=== PATIENT | male | born 1970 | race American Indian/Alaskan Native ===

== ENCOUNTER 2019-01-20 20:08 | Emergency (ER) | payer SELFPAY ==
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
[2019-01-20] MEDS ORDERED: TETRACAINE 0.5% OPHTH SOLN 4ML OU PRN (23:49)
[2019-01-20] MEDS ORDERED: FLUORESCEIN 1 MG STRIP OP ONE (23:49)
--- NOTE | 2019-01-21 00:30 | Emergency Department Report ---
ED General Adult HPI - General Chief complaint: Eye Problems Stated complaint: HIT IN LT EYE Time Seen by Provider: 01/20/19 21:28 Source: patient Mode of arrival: Ambulatory Limitations: No Limitations - History of Present Illness Initial comments: Patient is a 48-year-old -[place] male with no past medical history who presents to the ED with complaint of acute onset persistent left eye pain and left eyelid after an individual at work poked his left eye accidentally when gesturing 24 hours ago. Patient denies vision loss, headache, bleeding lacerations, nausea and vomiting, dizziness or lightheadedness, traumatic injury or fall. MD Complaint: left eye pain; left eyelid pain -: Sudden, hour(s) (24) Location: eyes (left eye and eyelid) Radiation: non-radiation Severity scale (0 -10): 4 Quality: aching, sharp Consistency: constant Improves with: none Worsens with: none Associated Symptoms: denies other symptoms. denies: confusion, chest pain, cough, diaphoresis, fever/chills, headaches, loss of appetite, malaise, nausea/vomiting, seizure, shortness of breath, syncope Treatments Prior to Arrival: none - Related Data Previous Rx's Medication Instructions Recorded Last Taken Type Ibuprofen [Motrin] 800 mg PO Q8HR PRN #20 tablet 01/21/19 Unknown Rx Tobramycin/Dexamethasone [Tobradex 1 - 2 drop OP Q6HR #5 ml 01/21/19 Unknown Rx Eye Drops 0.3/0.1%] Allergies Allergy/AdvReac Type Severity Reaction Status Date / Time Penicillins Allergy Hives Verified 01/20/19 20:09 ED Review of Systems ROS: Stated complaint: HIT IN LT EYE Other details as noted in HPI Constitutional: denies: chills, fever Eyes: eye pain (left eye). denies: eye discharge, vision change ENT: denies: ear pain, throat pain Respiratory: denies: cough, shortness of breath, wheezing Cardiovascular: denies: chest pain, palpitations Endocrine: no symptoms reported Gastrointestinal: denies: abdominal pain, nausea, diarrhea Genitourinary: denies: urgency, dysuria Musculoskeletal: denies: back pain, joint swelling, arthralgia Skin: denies: rash, lesions Neurological: denies: headache, weakness, paresthesias Psychiatric: denies: anxiety, depression Hematological/Lymphatic: denies: easy bleeding, easy bruising ED Past Medical Hx - Past Medical History Previous Medical History?: No - Surgical History Past Surgical History?: No - Social History Smoking Status: Never Smoker Substance Use Type: None - Medications Home Medications: Home Medications Medication Instructions Recorded Confirmed Last Taken Type Ibuprofen [Motrin] 800 mg PO Q8HR PRN #20 tablet 01/21/19 Unknown Rx Tobramycin/Dexamethasone [Tobradex 1 - 2 drop OP Q6HR #5 ml 01/21/19 Unknown Rx Eye Drops 0.3/0.1%] ED Physical Exam - General Limitations: No Limitations General appearance: alert, in no apparent distress - Head Head exam: Present: atraumatic, normocephalic, normal inspection - Eye Eye exam: Present: normal appearance, PERRL, EOMI, other (mildly erythematous abrasions of left lower eyelid) Pupils: Present: normal accommodation, other (left conjunctival erythema) - ENT ENT exam: Present: normal exam, normal orophraynx, mucous membranes moist, TM's normal bilaterally, normal external ear exam - Neck Neck exam: Present: normal inspection, full ROM - Respiratory Respiratory exam: Present: normal lung sounds bilaterally. Absent: respiratory distress, wheezes, rales, rhonchi, chest wall tenderness, accessory muscle use, decreased breath sounds - Cardiovascular Cardiovascular Exam: Present: regular rate, normal rhythm, normal heart sounds. Absent: systolic murmur, diastolic murmur, rubs, gallop - GI/Abdominal GI/Abdominal exam: Present: soft, normal bowel sounds. Absent: tenderness, guarding, hyperactive bowel sounds - Extremities Exam Extremities exam: Present: normal inspection, full ROM, normal capillary refill - Back Exam Back exam: Present: normal inspection, full ROM. Absent: muscle spasm, paraspinal tenderness, vertebral tenderness - Neurological Exam Neurological exam: Present: alert, oriented X3, CN II-XII intact, normal gait, reflexes normal - Psychiatric Psychiatric exam: Present: normal affect, normal mood - Skin Skin exam: Present: warm, dry, intact, normal color. Absent: rash ED Course Vital Signs 01/20/19 20:14 Temperature 98.0 F Pulse Rate 87 Respiratory 20 Rate Blood Pressure 150/83 O2 Sat by Pulse 99 Oximetry ED Medical Decision Making - Medical Decision Making This is a 48-year-old Sudanese male with no past medical history presented to the ED with painful left eye and left eyelid after an individual at work poked his left eye accidentally when gesturing with his hands 24 hours ago. In the ED, patient is alert and oriented 3 and is not in distress. Wood's lamp exam shows no corneal abrasion to the left eye with a mild erythematous conjunctiva. There is mild left lower eyelid irritation on exam as well. Patient's vision is intact and normal. Patient was discharged home on antibiotic eyedrops and pain medications by mouth. Patient was advised to follow-up with his primary care physician in 7-10 days for reevaluation or return to the ED immediately if symptoms get worse. - Differential Diagnosis clinicaleye injury; corneal abrasion; conjunctival abrasion Critical care attestation.: If time is entered above; I have spent that time in minutes in the direct care of this critically ill patient, excluding procedure time. ED Disposition Clinical Impression: Acute pain in left eye Abrasion of left eyelid Qualifiers: Encounter type: initial encounter Qualified Code(s): S00.212A - Abrasion of left eyelid and periocular area, initial encounter Disposition: DC- TO HOME OR SELFCARE Is pt being admited?: No Does the pt Need Aspirin: No Condition: Stable Instructions: Contusion in Adults (ED), Eye Pain (ED) Additional Instructions: Apply the medication to the affected eye is advised, take pain medication as needed and follow up with your primary care physician in 7-10 days for reevaluation. Return to the ED immediately if symptoms get worse. Prescriptions: Ibuprofen [Motrin] 800 mg PO Q8HR PRN #20 tablet PRN Reason: Pain , Severe (7-10) Tobramycin/Dexamethasone [Tobradex Eye Drops 0.3/0.1%] 1 - 2 drop OP Q6HR #5 ml Referrals: LILY HUDSON MD [Primary Care Provider] - 3-5 Days Time of Disposition: 00:29 Print Language: BURKINAN
[2019-01-21 01:54] VITALS: BP 143/84
== END 2019-01-21 01:10 | disposition home or self-care (01) ==
LOC: ED 20:08
DX: S00.212A Abrasion of left eyelid and periocular area, initial encounter (principal); Z79.899 Other long term (current) drug therapy; Z88.0 Allergy status to penicillin; X58.XXXA Exposure to other specified factors, initial encounter; Y93.89 Activity, other specified; Y92.89 Other specified places as the place of occurrence of the external cause; Y99.8 Other external cause status

== ENCOUNTER 2019-08-16 16:11 | Emergency (ER) | payer SELFPAY ==
--- NOTE | 2019-08-16 18:07 | Event Note ---
ED Screening Note Date of service: 08/16/19 Time: 18:05 ED Screening Note: 48-year-old male presents with fever, loss of appetite, loss of smell and diarrhea x 3 days Past medical history: HIV This initial assessment/diagnostic orders/clinical plan/treatment(s) is/are subject to change based on patients health status, clinical progression and re- assessment by fellow clinical providers in the ED. Further treatment and workup at subsequent clinical providers discretion. Patient/guardian urged not to elope from the ED as their condition may be serious if not clinically assessed and managed. Initial orders include: cxr,cbc,cmp
--- NOTE | 2019-08-16 18:41 | XRay Report ---
CHEST 2 VIEWS INDICATION / CLINICAL INFORMATION: CXR. COMPARISON: None available. FINDINGS: SUPPORT DEVICES: None. HEART / MEDIASTINUM: No significant abnormality. LUNGS / PLEURA: Mild linear scarring in the left lower lung. No acute pulmonary abnormality. No pneum othorax. ADDITIONAL FINDINGS: No significant additional findings. IMPRESSION: 1. No acute findings. Signer Name: Quintin Marshall MD Signed: 08/16/2019 6:37 PM Workstation Name: [id number]
[2019-08-16 18:43] LABS: Hematocrit 41.8 % (35.5-45.6); Hemoglobin 14.2 gm/dl (11.8-15.2); Mean Corpuscular HGB Conc 34 % (32-34); Mean Corpuscular Volume 94 fl (84-94); Platelet Count 253 K/mm3 (140-440); Red Blood Count 4.46 M/mm3 (3.65-5.03); Red Cell Distribution Width 13.1 % (13.2-15.2)
[2019-08-16 19:08] LABS: Alanine Aminotransferase 33 units/L (7-56); Albumin 3.9 g/dL (3.9-5); BUN/Creatinine Ratio 12; Blood Urea Nitrogen 12 mg/dL (9-20); Calcium 8.7 mg/dL (8.4-10.2); Hemolysis Index 12
[2019-08-16] MEDS ORDERED: ONDANSETRON 4 MG ODT TAB PO ONE (20:13)
[2019-08-16] MEDS ORDERED: FAMOTIDINE 20 MG TAB PO ONE (20:13)
[2019-08-16] MEDS ORDERED: POTASSIUM CHLORIDE ER 20 MEQ TAB PO ONE (20:13)
[2019-08-16 20:35] LABS: Basophils % (Manual) 0 % (0.0-1.8); Eosinophils % (Manual) 0 % (0.0-4.3); Platelet Estimate Consistent w Auto; RBC Morphology Normal; Total Cells Counted 100
--- NOTE | 2019-08-16 20:50 | Emergency Department Report ---
ED General Adult HPI - General Chief complaint: Nausea/Vomiting/Diarrhea Stated complaint: LOSS OF APPITETE Source: patient Mode of arrival: Ambulatory Limitations: No Limitations - History of Present Illness Initial comments: Patient is a 48-year-old -Filipino male with no past medical history presents to the ED with complaint of acute onset persistent diffuse body aches, generalized fatigue and weakness and lack of appetite for the last 3 days. Patient states that he has also been having loose stool and generalized mild diffuse abdominal discomfort. Patient states that no one else at home has had similar symptoms. Patient denies fever, chills, chest pain, shortness of breath, cough, sore throat, dysuria, urinary frequency and urgency and nausea and vomiting. MD Complaint: Generalized weakness and fatigue, lack of appetite -: Sudden, days(s) (3) Location: abdomen Radiation: non-radiation Severity scale (0 -10): 4 Quality: aching, dull Consistency: constant Improves with: none Worsens with: none Associated Symptoms: denies other symptoms, loss of appetite, malaise, weakness. denies: confusion, chest pain, cough, diaphoresis, fever/chills, headaches, nausea/vomiting, rash, seizure, shortness of breath, syncope Treatments Prior to Arrival: none - Related Data Previous Rx's Medication Instructions Recorded Last Taken Type Ibuprofen [Motrin] 800 mg PO Q8HR PRN #20 tablet 01/21/19 Unknown Rx Tobramycin/Dexamethasone [Tobradex 1 - 2 drop OP Q6HR #5 ml 01/21/19 Unknown Rx Eye Drops 0.3/0.1%] Famotidine [Pepcid] 20 mg PO BID #30 tablet 08/16/19 Unknown Rx Ibuprofen [Motrin] 600 mg PO Q8H PRN #20 tablet 08/16/19 Unknown Rx Ondansetron [Zofran Odt] 4 mg PO Q6HR PRN #15 tab.rapdis 08/16/19 Unknown Rx Allergies Allergy/AdvReac Type Severity Reaction Status Date / Time Penicillins Allergy Hives Verified 08/16/19 16:40 ED Review of Systems ROS: Stated complaint: LOSS OF APPITETE Other details as noted in HPI Constitutional: chills, malaise, weakness. denies: fever Eyes: denies: eye pain, eye discharge, vision change ENT: denies: ear pain, throat pain Respiratory: denies: cough, shortness of breath, wheezing Cardiovascular: denies: chest pain, palpitations Endocrine: no symptoms reported Gastrointestinal: denies: abdominal pain, nausea, vomiting, diarrhea Genitourinary: denies: urgency, dysuria Musculoskeletal: arthralgia, myalgia. denies: back pain, joint swelling Skin: denies: rash, lesions Neurological: denies: headache, weakness, paresthesias Psychiatric: denies: anxiety, depression Hematological/Lymphatic: denies: easy bleeding, easy bruising ED Past Medical Hx - Past Medical History Previous Medical History?: Yes Hx HIV: Yes (ON ANTI-VIRAL) - Surgical History Past Surgical History?: No - Social History Smoking Status: Never Smoker Substance Use Type: None - Medications Home Medications: Home Medications Medication Instructions Recorded Confirmed Last Taken Type Ibuprofen [Motrin] 800 mg PO Q8HR PRN #20 tablet 01/21/19 Unknown Rx Tobramycin/Dexamethasone [Tobradex 1 - 2 drop OP Q6HR #5 ml 01/21/19 Unknown Rx Eye Drops 0.3/0.1%] Famotidine [Pepcid] 20 mg PO BID #30 tablet 08/16/19 Unknown Rx Ibuprofen [Motrin] 600 mg PO Q8H PRN #20 tablet 08/16/19 Unknown Rx Ondansetron [Zofran Odt] 4 mg PO Q6HR PRN #15 tab.rapdis 08/16/19 Unknown Rx ED Physical Exam - General Limitations: No Limitations General appearance: alert, in no apparent distress - Head Head exam: Present: atraumatic, normocephalic, normal inspection - Eye Eye exam: Present: normal appearance, PERRL, EOMI Pupils: Present: normal accommodation - ENT ENT exam: Present: normal exam, normal orophraynx, mucous membranes moist, TM's normal bilaterally, normal external ear exam - Neck Neck exam: Present: normal inspection, full ROM - Respiratory Respiratory exam: Present: normal lung sounds bilaterally. Absent: respiratory distress, wheezes, rales, stridor, chest wall tenderness, accessory muscle use, prolonged expiratory - Cardiovascular Cardiovascular Exam: Present: regular rate, normal rhythm, normal heart sounds. Absent: systolic murmur, diastolic murmur, rubs, gallop - GI/Abdominal GI/Abdominal exam: Present: soft, normal bowel sounds. Absent: tenderness, guarding, rebound, hyperactive bowel sounds, hypoactive bowel sounds - Extremities Exam Extremities exam: Present: normal inspection, full ROM, normal capillary refill - Back Exam Back exam: Present: normal inspection, full ROM. Absent: tenderness, CVA tenderness (R), CVA tenderness (L), muscle spasm, vertebral tenderness - Neurological Exam Neurological exam: Present: alert, oriented X3, CN II-XII intact, normal gait, reflexes normal - Psychiatric Psychiatric exam: Present: normal affect, normal mood - Skin Skin exam: Present: warm, dry, intact, normal color. Absent: rash ED Course Vital Signs 08/16/19 08/16/19 16:42 21:22 Temperature 100.9 F H 99.3 F Pulse Rate 85 78 Respiratory 20 18 Rate Blood Pressure 129/83 Blood Pressure 124/94 [Left] O2 Sat by Pulse 97 100 Oximetry ED Medical Decision Making - Lab Data Result diagrams: 08/16/19 18:33 08/16/19 18:33 - Radiology Data Radiology results: report reviewed Findings [facility] [address] [place] [address] XRay Report Signed Patient: DEBBIE PRIETO MR#: [id number] : 1970 Acct:[id number] Age/Sex: 48 / M ADM Date: 08/16/19 Loc: ED Attending Dr: Ordering Physician: SONY ALEJANDRO Date of Service: 08/16/19 Procedure(s): XR chest routine 2V Accession Number(s): [id number] cc: SONY ALEJANDRO Fluoro Time In Minutes: CHEST 2 VIEWS INDICATION / CLINICAL INFORMATION: CXR. COMPARISON: None available. FINDINGS: SUPPORT DEVICES: None. HEART / MEDIASTINUM: No significant abnormality. LUNGS / PLEURA: Mild linear scarring in the left lower lung. No acute pulmonary abnormality. No pneumothorax. ADDITIONAL FINDINGS: No significant additional findings. IMPRESSION: 1. No acute findings. Signer Name: Quintin Marshall MD Signed: 08/16/2019 6:37 PM Workstation Name: [id number] Transcribed By: MARIA D Dictated By: Quintin Marshall MD Electronically Authenticated By: Quintin Marshall MD Signed Date/Time: 08/16/19 070 DD/ 35 TD/TT: - Medical Decision Making This is a 48-year-old -Filipino male with no past medical history presents to the ED with complaint of acute onset persistent diffuse body aches, generalized fatigue and weakness and lack of appetite for the last 3 days. Patient states that he has also been having loose stool and generalized mild diffuse abdominal discomfort. Patient states that no one else at home has had similar symptoms. In the ED, patient is alert and oriented x3 and is not in distress but febrile in triage. Patient was treated for pain and also for fever. Lab test results were reviewed and are all nonactionable. Chest x-ray shows no acute cardiopulmonary abnormalities or pneumonitis. On reevaluation, patient felt better and was discharged home on medications. Patient was advised return to the ED immediately if symptoms get worse, otherwise follow-up with his primary care physician in 7 to 10 days for reevaluation. - Differential Diagnosis URI; Sinusitis; Gastroenteritis; Viral syndrome Critical care attestation.: If time is entered above; I have spent that time in minutes in the direct care of this critically ill patient, excluding procedure time. ED Disposition Clinical Impression: Nonspecific syndrome suggestive of viral illness, Fever and chills Disposition: DC-01 TO HOME OR SELFCARE Is pt being admited?: No Does the pt Need Aspirin: No Condition: Stable Instructions: Fever in Adults (ED), Viral Syndrome (ED) Additional Instructions: Take medication with food, drink plenty of fluids and follow-up with your primary care physician in 7 to 10 days for reevaluation. Return to the ED immediately if symptoms get worse. Prescriptions: Ibuprofen [Motrin] 600 mg PO Q8H PRN #20 tablet PRN Reason: Pain Famotidine [Pepcid] 20 mg PO BID #30 tablet Ondansetron [Zofran Odt] 4 mg PO Q6HR PRN #15 tab.rapdis PRN Reason: Nausea Referrals: [facility] [Provider Group] - 3-5 Days Forms: Work/School Release Form(ED) Time of Disposition: 20:49 Print Language: BAHAMIAN
[2019-08-16 21:22] VITALS: BP 124/94
== END 2019-08-16 21:22 | disposition home or self-care (01) ==
LOC: ED 16:11
DX: B34.9 Viral infection, unspecified (principal)
CPT/HCPCS: 36415; 71046; 80053; 83690; 85007; 85025; 99284; Q0162

== ENCOUNTER 2021-08-31 21:44 | Emergency (ER) | payer OTHER, SELFPAY ==
[2021-08-31 22:57] VITALS: BP 130/62
[2021-09-01] MEDS ORDERED: LIDOCAINE VISCOUS 2% 15 ML ORAL LIQD PO ONE (00:57)
[2021-09-01] MEDS ORDERED: IBUPROFEN 600 MG TAB PO ONE (00:57)
--- NOTE | 2021-09-01 01:14 | Emergency Department Report ---
ED General Adult HPI - General Chief complaint: Sore Throat Stated complaint: SORE THROAT/SLIGHT FEVER Source: patient Mode of arrival: Ambulatory Limitations: No Limitations - History of Present Illness Initial comments: Patient is a 50-year-old -[place] male with a history of HIV and wny-flbpfld-lddnjqijg diabetes who presents to the ED with complaint of acute onset persistent sore throat, dysphagia, headache, painful swollen anterior cervical lymph nodes and subjective fever and chills for the last 3 days. Patient states that he has been taking eyqp-bvr-pgrnudf medication with no relief. Patient states the pain is especially worse with swallowing or speech. Patient denies dysphonia, hoarseness, nasal and sinus congestion, ear pain, dizziness, syncope, chest pain and shortness of breath, nausea and vomiting, abdominal pain, cough, back pain, change in vision or lightheadedness. MD Complaint: Sore throat, dysphagia, swollen lymph nodes -: days(s) (3) Location: mouth Radiation: non-radiation Severity scale (0 -10): 8 Quality: aching, sharp Consistency: constant Improves with: none Worsens with: eating Associated Symptoms: denies other symptoms, fever/chills, headaches, loss of appetite, malaise. denies: chest pain, cough, diaphoresis, nausea/vomiting, rash, seizure, shortness of breath, syncope, weakness Treatments Prior to Arrival: none - Related Data Home Medications Medication Instructions Recorded Confirmed Last Taken Atazanavir Sulfate/Cobicistat 300 mg PO DAILY 08/24/19 08/24/19 08/22/19 [Evotaz 300 mg-150 mg Tablet] Emtricitabine/Tenofov Alafenam 200 mg PO DAILY 08/24/19 08/24/19 08/23/19 [Descovy 200-25 mg (Nf)] Previous Rx's Medication Instructions Recorded Last Taken Type Famotidine [Pepcid] 20 mg PO BID #30 tablet 08/16/19 08/22/19 Rx Ondansetron [Zofran ODT TAB] 4 mg PO Q6HR PRN #15 tab.rapdis 08/16/19 08/22/19 Rx Acetaminophen [Acetaminophen TAB] 650 mg PO Q4H PRN tablet 08/24/19 Unknown Rx Clindamycin [Clindamycin CAP] 300 mg PO Q6H #40 cap 09/01/21 Unknown Rx Ibuprofen [Motrin] 800 mg PO Q8HR PRN #30 tablet 09/01/21 Unknown Rx Lidocaine Viscous 2% 10 ml PO Q6H PRN #120 ml 09/01/21 Unknown Rx Allergies Allergy/AdvReac Type Severity Reaction Status Date / Time Penicillins Allergy Hives Verified 08/16/19 16:40 ED Review of Systems ROS: Stated complaint: SORE THROAT/SLIGHT FEVER Other details as noted in HPI Constitutional: chills, fever, malaise Eyes: denies: eye pain, eye discharge, vision change ENT: throat pain. denies: ear pain Respiratory: denies: cough, shortness of breath, wheezing Cardiovascular: denies: chest pain, palpitations Endocrine: no symptoms reported Gastrointestinal: denies: abdominal pain, nausea, vomiting, diarrhea Genitourinary: denies: urgency, dysuria Musculoskeletal: arthralgia, myalgia. denies: back pain, joint swelling Skin: denies: rash, lesions Neurological: headache. denies: weakness, paresthesias Psychiatric: denies: anxiety, depression Hematological/Lymphatic: denies: easy bleeding, easy bruising ED Past Medical Hx - Past Medical History Previous Medical History?: Yes Hx Diabetes: Yes Hx HIV: Yes - Surgical History Past Surgical History?: No - Social History Smoking Status: Never Smoker - Medications Home Medications: Home Medications Medication Instructions Recorded Confirmed Last Taken Type Famotidine [Pepcid] 20 mg PO BID #30 tablet 08/16/19 08/24/19 08/22/19 Rx Ondansetron [Zofran ODT TAB] 4 mg PO Q6HR PRN #15 tab.rapdis 08/16/19 08/24/19 08/22/19 Rx Acetaminophen [Acetaminophen TAB] 650 mg PO Q4H PRN tablet 08/24/19 Unknown Rx Atazanavir Sulfate/Cobicistat 300 mg PO DAILY 08/24/19 08/24/19 08/22/19 History [Evotaz 300 mg-150 mg Tablet] Emtricitabine/Tenofov Alafenam 200 mg PO DAILY 08/24/19 08/24/19 08/23/19 Hi story [Descovy 200-25 mg (Nf)] Clindamycin [Clindamycin CAP] 300 mg PO Q6H #40 cap 09/01/21 Unknown Rx Ibuprofen [Motrin] 800 mg PO Q8HR PRN #30 tablet 09/01/21 Unknown Rx Lidocaine Viscous 2% 10 ml PO Q6H PRN #120 ml 09/01/21 Unknown Rx ED Physical Exam - General Limitations: No Limitations General appearance: alert, in no apparent distress - Head Head exam: Present: atraumatic, normocephalic, normal inspection - Eye Eye exam: Present: normal appearance, PERRL, EOMI - ENT ENT exam: Present: mucous membranes moist, TM's normal bilaterally, normal external ear exam, other (Mild erythematous oropharynx and tonsils, mild white patchy exudates, uvula midline and no sign of peritonsillar abscess) - Neck Neck exam: Present: normal inspection, full ROM, lymphadenopathy (Palpable anterior cervical lymphadenopathy and tenderness) - Respiratory Respiratory exam: Present: normal lung sounds bilaterally. Absent: respiratory distress, wheezes, rales, rhonchi, stridor, chest wall tenderness, accessory muscle use, decreased breath sounds, prolonged expiratory - Cardiovascular Cardiovascular Exam: Present: regular rate, normal rhythm, normal heart sounds. Absent: systolic murmur, diastolic murmur, rubs, gallop - GI/Abdominal GI/Abdominal exam: Present: soft, normal bowel sounds. Absent: tenderness, guarding, rebound, hyperactive bowel sounds, hypoactive bowel sounds, organomegaly - Extremities Exam Extremities exam: Present: normal inspection, full ROM, normal capillary refill - Back Exam Back exam: Present: normal inspection, full ROM. Absent: tenderness, CVA tenderness (R), CVA tenderness (L), muscle spasm, paraspinal tenderness, vertebral tenderness - Neurological Exam Neurological exam: Present: alert, oriented X3, CN II-XII intact, normal gait, reflexes normal - Psychiatric Psychiatric exam: Present: normal affect, normal mood - Skin Skin exam: Present: warm, dry, intact, normal color. Absent: rash ED Course Vital Signs 08/31/21 22:55 Temperature 99.5 F Pulse Rate 84 Respiratory 16 Rate Blood Pressure 130/62 [Right] O2 Sat by Pulse 100 Oximetry ED Medical Decision Making - Medical Decision Making This is a 50-year-old -[place] male with a history of HIV and uug-bavftbz-lfrhhrggl diabetes who presents to the ED with complaint of acute onset persistent sore throat, dysphagia, headache, painful swollen anterior cervical lymph nodes and subjective fever and chills for the last 3 days. Patient states that he has been taking qbbu-kuu-kfyeyzm medication with no relief. Patient states the pain is especially worse with swallowing or speech. In the ED, patient is alert and oriented x3 and is not in any distress. Patient was treated for pain in the ED and also received initial oral antibiotics based on the history and physical exam findings. Patient was discharged home on pain medications and antibiotics and advised to follow-up with his primary care physician in 7 to 10 days for reevaluation or return to the ED immediately if symptoms get worse. - Differential Diagnosis Strep pharyngitis; bacterial tonsillitis; viral pharyngitis; URI; Critical care attestation.: If time is entered above; I have spent that time in minutes in the direct care of this critically ill patient, excluding procedure time. ED Disposition Clinical Impression: Acute bacterial tonsillitis, Acute bacterial pharyngitis, Anterior cervical lymphadenopathy Disposition: 01 HOME / SELF CARE / HOMELESS Is pt being admited?: No Does the pt Need Aspirin: No Condition: Stable Instructions: Tonsillitis, [id number], Pharyngitis, Mgdc-ed-Bzct, Lymphadenopathy Additional Instructions: Take medication with food, drink plenty of fluids, follow-up with your primary care physician in 7 to 10 days for reevaluation. Return to the ED immediately if symptoms get worse. Prescriptions: Clindamycin [Clindamycin CAP] 300 mg PO Q6H #40 cap Lidocaine Viscous 2% 10 ml PO Q6H PRN #120 ml PRN Reason: Sore Throat Ibuprofen [Motrin] 800 mg PO Q8HR PRN #30 tablet PRN Reason: Pain , Severe (7-10) Referrals: ARIK NEWBERRY MD [Primary Care Provider] - 3-5 Days Forms: Work/School Release Form(ED) Time of Disposition: 01:16 Print Language: [place]
[2021-09-01] MEDS ORDERED: CLINDAMYCIN 150 MG CAP PO ONE (01:57)
== END 2021-09-01 02:20 | disposition home or self-care (01) ==
LOC: ED 21:44
DX: J02.8 Acute pharyngitis due to other specified organisms (principal); B96.89 Other specified bacterial agents as the cause of diseases classified elsewhere; R59.1 Generalized enlarged lymph nodes; E11.9 Type 2 diabetes mellitus without complications; Z88.0 Allergy status to penicillin; Z79.899 Other long term (current) drug therapy
CPT/HCPCS: 99282